=== PATIENT | female | born 1930 | race African-American/Black ===

== ENCOUNTER 2018-03-03 13:21 | Inpatient (IN) | payer MEDICARE, MEDICAID ==
[~2018-03-03] VITALS: Ht 162.6 cm; Wt 49.0 kg
[2018-03-03] MEDS ORDERED: SODIUM CHLORIDE 0.9% 1,000 ML IV ONE (14:38)
[2018-03-03] MEDS ORDERED: ONDANSETRON HCL 4MG/2ML INJ IV STA (14:38)
[2018-03-03 16:13] LABS: BASOPHILS % 0.4 % (0.0-2.0); HEMATOCRIT. 40.1 % (36.0-48.0); HEMOGLOBIN. 13.4 g/dL (12.0-16.0); MEAN CORPUSCULAR HEMOGLOBIN 32.4 pg (28.0-32.0); MEAN CORPUSCULAR VOLUME 96.7 fL (81.0-99.0); MEAN PLATELET VOLUME 8.5 fl (7.4-10.4); MONOCYTES % 4.7 % (2.0-8.0); NEUTROPHILS % 77.9 % (40.0-76.0); PLATELET 250 x1000/uL (130-400); RED BLOOD CELL COUNT 4.15 mill/uL (4.2-5.4); RED CELL DISTRIBUTION WIDTH 15.3 % (11.6-14.6)
[2018-03-03 16:19] LABS: CHLORIDE 92 mEq/L (98-107)
[2018-03-03 16:21] LABS: PARTIAL THROMBOPLASTIN TIME 22.9 sec (23.4-31.0); PROTHROMBIN TIME 9.8 sec (9.1-11.1)
[2018-03-03 16:23] LABS: ETHANOL BLOOD < 10 mg/dL
[2018-03-03 20:30] VITALS: BP 166/60
[2018-03-03 22:00] VITALS: BP 166/60
[2018-03-04] VITALS: BP 132/64
[2018-03-04] MEDS: SODIUM CHLORIDE 0.9% 1,000 ML IV SCH ×3 (02:17→21:28)
[2018-03-04] MEDS ORDERED: TRAMADOL 50MG TABLET PO PRN (03:15)
[2018-03-04 04:00] VITALS: BP 126/68
[2018-03-04 07:08] LABS: BASOPHILS % 0.6 % (0.0-2.0); EOSINOPHILS % 1.2 % (0.0-5.0); HEMATOCRIT. 30.5 % (36.0-48.0); HEMOGLOBIN. 10.3 g/dL (12.0-16.0); LYMPHOCYTES % 31.7 % (20.0-50.0); MEAN CORPUSCULAR HEMOGLOBIN 32.7 pg (28.0-32.0); MEAN CORPUSCULAR VOLUME 96.6 fL (81.0-99.0); MEAN PLATELET VOLUME 8.4 fl (7.4-10.4); MONOCYTES % 6.9 % (2.0-8.0); NEUTROPHILS % 59.6 % (40.0-76.0); PLATELET 187 x1000/uL (130-400); RED BLOOD CELL COUNT 3.16 mill/uL (4.2-5.4); RED CELL DISTRIBUTION WIDTH 15.7 % (11.6-14.6)
[2018-03-04 08:00] VITALS: BP 128/62
[2018-03-04] MEDS ORDERED: CLONIDINE 0.1MG TABLET PO PRN (08:30)
[2018-03-04] MEDS ORDERED: MAGNESIUM/ALUMINUM HYDROXIDE/SIMETHICONE 30ML UDC PO PRN (08:30)
[2018-03-04] MEDS ORDERED: ACETAMINOPHEN 650MG SUPP PR PRN (08:30)
[2018-03-04] MEDS ORDERED: ENOXAPARIN 40MG/0.4ML SYR SUBCUT SCH (08:30)
[2018-03-04] MEDS ORDERED: NA PHOS,M-B/NA PHOS,DI-BA ENEMA 118ML PR PRN (08:30)
[2018-03-04] MEDS ORDERED: ONDANSETRON HCL 4MG/2ML INJ IV PRN (08:30)
[2018-03-04] MEDS ORDERED: GUAIFENESIN 200MG/10ML SUGAR FREE UDC PO PRN (08:30)
[2018-03-04] MEDS ORDERED: DOCUSATE SODIUM 100MG CAPSULE PO PRN (08:30)
[2018-03-04] MEDS ORDERED: ACETAMINOPHEN 325MG TABLET PO PRN (08:30)
[2018-03-04] MEDS ORDERED: IPRATROPIUM/ALBUTEROL 0.5-3(2.5)MG/3ML NEB INH PRN (08:30)
[2018-03-04] MEDS ORDERED: ACETAMINOPHEN 650MG/20.3ML UDC GT PRN (08:30)
[2018-03-04] MEDS ORDERED: DIPHENHYDRAMINE 50MG/ML VIAL IV PRN (08:30)
[2018-03-04] MEDS: AMLODIPINE 5MG TABLET PO SCH (08:57)
[2018-03-04] MEDS: ENOXAPARIN 30MG/0.3ML SYR SUBCUT SCH (09:00)
[2018-03-04 10:52] LABS: CHLORIDE 102 mEq/L (98-107)
[2018-03-04] MEDS: SODIUM CHLORIDE 0.9% INJ 3ML FLUSH IVF SCH ×2 (14:00→21:27)
[2018-03-04 16:00] VITALS: BP 110/76
[2018-03-04 20:00] VITALS: BP 137/93
[2018-03-04] MEDS: MIRTAZAPINE 15MG TABLET PO SCH (21:24)
[2018-03-04 23:56] VITALS: BP 96/64
[2018-03-05 04:00] VITALS: BP 107/56
[2018-03-05] MEDS: SODIUM CHLORIDE 0.9% INJ 3ML FLUSH IVF SCH ×3 (06:00→20:34)
[2018-03-05 08:00] VITALS: BP 128/49
[2018-03-05 09:07] LABS: CLARITY URINE CLEAR (CLEAR); COLOR URINE YELLOW (YELLOW); KETONES URINE NEGATIVE (NEGATIVE); LEUKOCYTE ESTERASE URINE TRACE (NEGATIVE); NITRITE URINE POSITIVE (NEGATIVE); OCCULT BLOOD URINE NEGATIVE (NEGATIVE); PROTEIN URINE NEGATIVE (NEGATIVE); SPECIFIC GRAVITY URINE 1.005 (1.005-1.030); UROBILINOGEN URINE 0.2 E.U./dL (0.2-1.0)
[2018-03-05] MEDS: AMLODIPINE 5MG TABLET PO SCH (10:25)
[2018-03-05] MEDS: ENOXAPARIN 30MG/0.3ML SYR SUBCUT SCH (10:25)
[2018-03-05] MEDS: SULFAMETHOXAZOLE/TRIMETHOPRIM 400/80MG TAB PO SCH ×2 (10:25→20:34)
[2018-03-05 11:52] LABS: BASOPHILS % 0.6 % (0.0-2.0); EOSINOPHILS % 1.2 % (0.0-5.0); HEMATOCRIT. 31.3 % (36.0-48.0); HEMOGLOBIN. 10.5 g/dL (12.0-16.0); LYMPHOCYTES % 28.2 % (20.0-50.0); MEAN CORPUSCULAR HEMOGLOBIN 32.5 pg (28.0-32.0); MEAN CORPUSCULAR VOLUME 97.3 fL (81.0-99.0); MEAN PLATELET VOLUME 8.5 fl (7.4-10.4); MONOCYTES % 8.4 % (2.0-8.0); NEUTROPHILS % 61.6 % (40.0-76.0); PLATELET 180 x1000/uL (130-400); RED BLOOD CELL COUNT 3.22 mill/uL (4.2-5.4)
[2018-03-05 12:00] VITALS: BP 118/58
[2018-03-05 12:09] LABS: CHLORIDE 106 mEq/L (98-107)
[2018-03-05 12:25] LABS: LDL CHOLESTEROL 101 mg/dL (5-100)
[2018-03-05 12:28] LABS: HDL CHOLESTEROL 34 mg/dL (40-59)
[2018-03-05 16:00] VITALS: BP 138/58
[2018-03-05] MEDS: SODIUM CHLORIDE 0.9% 1,000 ML IV SCH (17:39)
[2018-03-05 20:00] VITALS: BP 135/52
[2018-03-05] MEDS: MIRTAZAPINE 15MG TABLET PO SCH (20:34)
[2018-03-06] VITALS: BP 119/45
[2018-03-06 04:00] VITALS: BP 136/56
[2018-03-06] MEDS: SODIUM CHLORIDE 0.9% INJ 3ML FLUSH IVF SCH ×3 (05:52→20:52)
[2018-03-06 08:00] VITALS: BP 126/48
[2018-03-06 08:10] LABS: BASOPHILS % 0.9 % (0.0-2.0); HEMATOCRIT. 33.4 % (36.0-48.0); HEMOGLOBIN. 10.9 g/dL (12.0-16.0); LYMPHOCYTES % 31.9 % (20.0-50.0); MEAN CORPUSCULAR HEMOGLOBIN 32.1 pg (28.0-32.0); MEAN CORPUSCULAR VOLUME 97.8 fL (81.0-99.0); MEAN PLATELET VOLUME 8.2 fl (7.4-10.4); MONOCYTES % 5.5 % (2.0-8.0); NEUTROPHILS % 60.7 % (40.0-76.0); PLATELET 197 x1000/uL (130-400); RED BLOOD CELL COUNT 3.41 mill/uL (4.2-5.4); RED CELL DISTRIBUTION WIDTH 16.4 % (11.6-14.6)
[2018-03-06] MEDS ORDERED: AMLO5TAB88 PO (08:37)
[2018-03-06] MEDS ORDERED: MIRT15TA6 PO (08:37)
[2018-03-06 09:20] LABS: PHOSPHORUS 2.7 mg/dL (2.5-4.9)
[2018-03-06 09:24] LABS: T4 FREE 1.42 ng/dL (0.76-1.46)
[2018-03-06] MEDS: ENOXAPARIN 30MG/0.3ML SYR SUBCUT SCH (10:26)
[2018-03-06] MEDS: SULFAMETHOXAZOLE/TRIMETHOPRIM 400/80MG TAB PO SCH (10:27)
[2018-03-06] MEDS: AMLODIPINE 5MG TABLET PO SCH (10:28)
[2018-03-06 12:00] VITALS: BP 131/54
[2018-03-06] MEDS ORDERED: LEVOFLOXACIN 250MG TABLET PO SCH (13:00)
[2018-03-06] MEDS: SODIUM CHLORIDE 0.9% 1,000 ML IV SCH (15:54)
[2018-03-06 16:00] VITALS: BP 115/46
[2018-03-06 19:59] VITALS: BP 139/51
[2018-03-06] MEDS: MIRTAZAPINE 15MG TABLET PO SCH (20:51)
[2018-03-07] VITALS: BP 151/62
[2018-03-07 04:00] VITALS: BP 146/58
[2018-03-07] MEDS: SODIUM CHLORIDE 0.9% INJ 3ML FLUSH IVF SCH (05:47)
[2018-03-07] MEDS: SODIUM CHLORIDE 0.9% 1,000 ML IV SCH (05:58)
[2018-03-07 08:00] VITALS: BP 151/68
[2018-03-07 08:17] VITALS: BP 151/68
[2018-03-07] MEDS: AMLODIPINE 5MG TABLET PO SCH (08:54)
[2018-03-07] MEDS: ENOXAPARIN 30MG/0.3ML SYR SUBCUT SCH (08:55)
[2018-03-07 09:10] LABS: CA 19-9 42 U/mL (0-35); CANCER ANTIGEN 125 13.3 U/mL (0.0-38.1)
[2018-03-07 13:06] LABS: A/G RATIO 1.3 (0.7-1.7); ALBUMIN 3.1 g/dL (2.9-4.4); ALPHA-1-GLOBULIN 0.2 g/dL (0.0-0.4); ALPHA-2-GLOBULIN 0.7 g/dL (0.4-1.0); BETA GLOBULIN 0.9 g/dL (0.7-1.3); GAMMA GLOBULINS 0.6 g/dL (0.4-1.8); GLOBULIN TOTAL 2.3 g/dL (2.2-3.9); M-SPIKE Not Observed g/dL (Not Observed); TOTAL PROTEIN SERUM 5.4 g/dL (6.0-8.5)
== END 2018-03-07 10:37 | disposition home or self-care (01) | DRG 682 ==
LOC: ER 13:54 → 7WST 16:57 → EDBEDREQ 17:02 → ENRESERV 19:06
PROVIDERS: ADMIT Family Medicine; ATTEND Family Medicine
DX: N17.0 Acute kidney failure with tubular necrosis (principal); E43 Unspecified severe protein-calorie malnutrition; E87.1 Hypo-osmolality and hyponatremia; N39.0 Urinary tract infection, site not specified; Z68.1 Body mass index [BMI] 19.9 or less, adult; R62.7 Adult failure to thrive; E03.9 Hypothyroidism, unspecified; E11.22 Type 2 diabetes mellitus with diabetic chronic kidney disease; E86.0 Dehydration; D63.8 Anemia in other chronic diseases classified elsewhere; K44.9 Diaphragmatic hernia without obstruction or gangrene; M19.90 Unspecified osteoarthritis, unspecified site; F32.9 Major depressive disorder, single episode, unspecified; I12.9 Hypertensive chronic kidney disease with stage 1 through stage 4 chronic kidney disease, or unspecified chronic kidney disease; J32.0 Chronic maxillary sinusitis; M41.9 Scoliosis, unspecified; M43.17 Spondylolisthesis, lumbosacral region; N18.9 Chronic kidney disease, unspecified; E80.6 Other disorders of bilirubin metabolism; Z79.4 Long term (current) use of insulin; Z88.5 Allergy status to narcotic agent; Z80.3 Family history of malignant neoplasm of breast
CPT/HCPCS: 36415; 71045; 74176; 76770; 80048; 80061; 83520; 83605; 83735; 83880; 84100; 84155; 84165; 84439; 84484; 86301; 86304; 87077; 87186; 92610; 93005; 96361; 96374; 97162; 97530; 99285; C1893; G0482; J1650; J2405; J7030; J7040